=== PATIENT | female | born 1930 | race Caucasian/White ===

== ENCOUNTER 2020-02-21 18:49 | Emergency (ER) | payer MEDICARE, OTHER ==
[~2020-02-21] VITALS: Ht 160 cm; Wt 79.9 kg
[~2020-02-21 18:49] MED LIST: ASPI-1053 PO; CALC1TAB2 PO; CHOL400T57 PO; DOCU-28 PO; FERR325C PO; OMEP20CA15 PO
[2020-02-21 18:52] VITALS: BP 156/86
== END 2020-02-21 20:23 | disposition left against medical advice (07) ==
LOC: ER 18:50
DX: R53.1 Weakness (principal); R50.9 Fever, unspecified; Z53.21 Procedure and treatment not carried out due to patient leaving prior to being seen by health care provider